=== PATIENT | male | born 1965 | race Caucasian/White ===

== ENCOUNTER → 2018-05-30 | Outpatient (CLI) | payer BC | LOC: COL.VAS 13:29 | DX: M79.605 Pain in left leg (principal) ==

== ENCOUNTER → 2024-09-07 | Outpatient (CLI) | payer BC ==
[~2024-09-07] VITALS: Ht 188 cm; Wt 89.7 kg
[~2024-09-07] MED LIST: LIPITOR 10MG10 MG PO
[2024-09-07 14:37] VITALS: BP 111/85; PULSE 77; TEMP 98.1
[2024-09-07 15:35] VITALS: BP 136/84; PULSE 72
== END ==
LOC: COL.RAD 14:12
DX: I88.9 Nonspecific lymphadenitis, unspecified (principal)